=== PATIENT | female | born 1995 | race Caucasian/White ===

== ENCOUNTER 2017-01-30 21:33 | Emergency (ER) | payer OTHER ==
[~2017-01-30] VITALS: Ht 167.6 cm; Wt 86.6 kg
[2017-01-30 23:28] LABS: HEMATOCRIT 38.8 % (36.0-46.0); MCHC 32.5 G/DL (30.0-36.0); MCV 86.2 FL (83-99); MEAN PLAT.VOLUME 10.5 uM^3 (9.5-12.4); PLATELET COUNT 253 K/uL (156-360); RBC DIS.WIDTH-CV 12.1 % (11.8-14.6); RBC DIS.WIDTH-SD 38.5 % (39-53); WHITE BLOOD COUNT 10.8 K/uL (4.1-10.2)
[2017-01-30 23:31] LABS: ADD MIUA? YES; BILIRUBIN NEGATIVE; BLOOD NEGATIVE; COLOR YELLOW ((YELLOW)); GLUCOSE (STRIP) NEGATIVE; KETONES NEGATIVE; LEUKOCYTES SMALL; NITRITE POSITIVE; PROTEIN (STRIP) NEGATIVE; UROBILINOGEN 0.2 MG/DL (0.2-1.0)
[2017-01-30 23:42] LABS: CHLORIDE 107 mEq/L (99-109); POTASSIUM 3.8 mEq/L (3.7-5.4); SODIUM 143 mEq/L (136-147)
[2017-01-30 23:42] LABS: BACTERIA RARE /HPF; EPITHELIAL CELLS RARE /HPF; MUCUS TRACE /LPF; RED BLOOD CELLS 0-5 /HPF (0-5); UCUL ADDED? NO; WHITE BLOOD CELLS 15-20 /HPF (0-5)
[2017-01-30 23:44] LABS: GLUCOSE 95 mg/dL (70-99)
[2017-01-30 23:45] LABS: ANION GAP 11 MEQ/L (2-14)
[2017-01-30 23:46] LABS: TOTAL BILIRUBIN 0.2 mg/dL (0.0-1.0)
[2017-01-30 23:47] LABS: ALKALINE PHOSPHATASE 82 IU/L (3-129)
[2017-01-30 23:48] LABS: GFR ESTIMATE (CALCULATED) > 59 mL/min/
[2017-01-30 23:49] LABS: UREA NITROGEN (BUN) 16 mg/dL (9-23)
[2017-01-31] LABS: QUANTITATIVE HCG < 4.0 MIU/ML
[2017-01-31] MEDS ORDERED: MACROBID100 MG PO (01:00)
[2017-01-31 01:28] VITALS: BP 110/65
== END 2017-01-31 01:28 | disposition home or self-care (01) ==
LOC: EME 21:33
PROVIDERS: Physician Assistant
DX: M79.89 Other specified soft tissue disorders (principal); N39.0 Urinary tract infection, site not specified; F17.200 Nicotine dependence, unspecified, uncomplicated
CPT/HCPCS: 80053; 81003; 84439; 84443; 84702; 85027; 99281; 99283